=== PATIENT | female | born 1965 | race Hispanic/Latino ===

== ENCOUNTER 2019-08-28 17:40 | Emergency (ER) | payer SELFPAY ==
[~2019-08-28] VITALS: Ht 152.4 cm; Wt 73.5 kg
[2019-08-28] MEDS ORDERED: ALBUTEROL SULF 0.083% NEB SOLN 3 ML NEB NEB STA (18:01)
[2019-08-28] MEDS ORDERED: IPRATROPIUM BROMIDE 0.02% 2.5 ML NEB NEB STA (18:01)
[2019-08-28 18:28] LABS: STREPTOCOCCUS GRP A ANTIGEN NEGATIVE (NEGATIVE)
--- NOTE | 2019-08-28 18:37 | Diagnostic Imaging Report ---
EXAMINATION: CHEST 2 VIEWS INDICATION: Chest pain, cough. COMPARISON: None FINDINGS: TUBES and LINES: None. LUNGS: Moderate lung volumes. There is no evidence of pneumonia or pulmonary edema. PLEURA: No pleural effusion or pneumothorax. HEART AND MEDIASTINUM: The cardiomediastinal silhouette is unremarkable. BONES AND SOFT TISSUES: No acute osseous lesion. Soft tissues are unremarkable. UPPER ABDOMEN: No free air under the diaphragm. IMPRESSION: No acute radiographic abnormality. Signed by: Dr. Myriam Rogers MD on 08/28/2019 6:34 PM
[2019-08-28 18:39] LABS: INFLUENZAE A&B ANTIGEN (RAPID) NEGATIVE (NEGATIVE)
[2019-08-28 19:08] VITALS: BP 170/94
== END 2019-08-28 19:09 | disposition home or self-care (01) ==
LOC: ER 17:40
DX: R50.9 Fever, unspecified (principal); R05 Cough; J20.9 Acute bronchitis, unspecified
CPT/HCPCS: 71046; 83518; 87070; 87400; 99283